=== PATIENT | female | born 1950 | race Caucasian/White ===

== ENCOUNTER 2020-01-19 01:16 | Day surgery (SDC) | payer OTHER, SELFPAY ==
[2020-01-13 13:33] VITALS: BMI 32.8
[2020-01-19 06:43] VITALS: BP 136/84; PULSE 83; RESP 16; TEMP 36.9; O2SAT 99; BMI 32.2
[2020-01-19] MEDS: LACTATED RINGERS 1,000 ML 150 ML IV CONT (06:54)
--- NOTE | 2020-01-19 07:15 | P.PNAN_ITS ---
Anes - Initial Pre Proc Eval Procedure: Operation Date: 01/19/20 07:30 Proposed Procedures p Screening Colonoscopy - Leeroy Norris MD Date/Time: 01/19/20 07:15 Surgeon: Leeroy Norris MD Pre Op Diagnosis: neoplasm screening Patient Data Age: 69 Gender: F Height: 5 ft 8 in Weight: 96.1 kg Last Vital Signs Temp 98.5 F 01/19/20 06:43 Pulse 83 01/19/20 06:43 Resp 16 01/19/20 06:43 BP 136/84 01/19/20 06:43 Pulse Ox 99 01/19/20 06:43 Allergies Allergy/AdvReac Type Severity Reaction Status Date / Time morphine Allergy Mild itching Verified 01/19/20 06:41 Penicillins Allergy Mild RASH Verified 01/19/20 06:41 Home Medications Medication Instructions Recorded Confirmed Type irbesartan 150 mg PO DAILY 01/13/20 01/19/20 History levothyroxine 125 mcg PO DAILY 01/13/20 01/19/20 History loratadine [Claritin] 10 mg PO DAILY 01/13/20 01/19/20 History Patient hx anesthesia problems: none Family hx anesthesia problems: none PMFSH Past Medical History Medical History (Updated 01/19/20 @ 07:15 by Mao Jackson MD) H/O malignant neoplasm of breast Hypertension Hypothyroid Social History Social History (System 01/03/20 @ 08:24 by Bailey Jacobson) Alcohol intake: current Gender identity (if verbalized by the patient): Female Anes - Eval Final PreProcedure Day of Procedure 01/19/20 07:15 Patient weight: obese Heart: regular rate and rhythm Lungs: clear to auscultation Airway: Mallampati scale class III Neurological: alert and oriented Last oral intake: >/= 8 hours ASA classification: III Emergent: no Anesthetic plan: proceed Anesthesia type and monitoring: general GIVS and standard monitoring Informed Consent: The patient's anesthetic plan and its attendant risks and benefits were discussed with the patient/family/POA. Questions were solicited an d answers provided to the satisfaction of the patient/family/POA.
--- NOTE | 2020-01-19 07:53 | WPDGICN ---
Assessment and Plan Assessment and plan (1) Encounter for screening for colorectal malignant neoplasm: Code(s): Z12.11 - Encounter for screening for malignant neoplasm of colon; Z12.12 - Encounter for screening for malignant neoplasm of rectum Status: Acute Assessment and Plan: Screening colonoscopy to be performed today. Further recommendations after endoscopy. (2) H/O malignant neoplasm of breast: Code(s): Z85.3 - Personal history of malignant neoplasm of breast Status: Acute GI Consult Note Consult date/time: 01/19/20 07:53 HPI: Jade Hopkins is a 69 year old female Seen in evaluation at the request of Dr. Luis Miguel Teran, Followed by a PA Maren Nuno. Patient presents for neoplasia screening colonoscopy. Her current weight appetite bowel movements are normal. She denies abdominal pain. She has no blood in her stools. Bowel habits are regular. Family history is noncontributory. there is no family history of colon or rectal disease.Her brother had esophageal cancer Review of Systems Review of Systems: All systems reviewed & are unremarkable except as noted in HPI and below PMFSH Past Medical History Medical History H/O malignant neoplasm of breast Hypertension Hypothyroid Social History Social History (System 01/03/20 @ 08:24 by Bailey Jacobson) Alcohol intake: current Gender identity (if verbalized by the patient): Female Meds Home Medications and Allergies Home Medications Medication Instructions Recorded Confirmed Type irbesartan 150 mg PO DAILY 01/13/20 01/19/20 History levothyroxine 125 mcg PO DAILY 01/13/20 01/19/20 History loratadine [Claritin] 10 mg PO DAILY 01/13/20 01/19/20 History Allergies Allergy/AdvReac Type Severity Reaction Status Date / Time morphine Allergy Mild itching Verified 01/19/20 06:41 Penicillins Allergy Mild RASH Verified 01/19/20 06:41 Vital Signs Vital Signs - 24 hr 01/19/20 06:43 Temperature 36.9 C Pulse Rate 83 Respiratory Rate 16 Blood Pressure 136/84 Pulse Oximetry 99 Exam Narrative: Exam Narrative: Physical exam reveals her to be alert. Vital signs stable. HEENT exam unremarkable. Lungs are clear to auscultation and percussion. Heart is without murmur or extra sounds. Abdominal exam bowel sounds are present soft nontender with no organomegaly. Digital external rectal exam normal.
[2020-01-19 07:54] VITALS: BP 78/41; PULSE 86; RESP 18; O2SAT 99
[2020-01-19 08:04] VITALS: BP 90/65; PULSE 91; RESP 19; O2SAT 98
[2020-01-19 08:14] VITALS: BP 98/57; PULSE 85; RESP 18; O2SAT 100
== END 2020-01-19 08:40 | disposition home or self-care (01) ==
PROVIDERS: PCP Physician Assistant; Visit Provider Internal Medicine Gastroenterology
PROC: 0DJD8ZZ Inspection of Lower Intestinal Tract, Via Natural or Artificial Opening Endoscopic (ICD-10-PCS; CPT 45378; principal; 2020-01-19 07:30)
DX: Z12.11 Encounter for screening for malignant neoplasm of colon (principal); D12.8 Benign neoplasm of rectum; K63.5 Polyp of colon; K57.30 Diverticulosis of large intestine without perforation or abscess without bleeding; K64.8 Other hemorrhoids; I10 Essential (primary) hypertension; E03.9 Hypothyroidism, unspecified; Z85.3 Personal history of malignant neoplasm of breast; E66.9 Obesity, unspecified; Z68.32 Body mass index [BMI] 32.0-32.9, adult
CPT/HCPCS: 45385; 88305; J2704; J7120

== ENCOUNTER → 2020-06-14 10:32 | Outpatient (CLI) | payer OTHER, SELFPAY ==
--- NOTE | ~2020-06-14 | MM_ITS ---
EXAMINATION: MM screening brenda RT w adelina HISTORY: Screening. Left breast cancer. TECHNIQUE: Craniocaudal and mediolateral oblique 3-D tomosynthesis images were obtained and synthetic 2-D images were generated. CAD analysis was submitted and interpreted. COMPARISON: Comparison to multiple prior studies sequentially, with oldest reviewed study dated 12/2013. BREAST PARENCHYMAL COMPOSITION: There are scattered areas of fibroglandular density. FINDINGS: There is no evidence of suspicious mass, calcification, or architectural distortion to sugg est malignancy in either breast. There has been no suspicious interval change. IMPRESSION: 1. No mammographic evidence of malignancy. 2. Recommend routine screening mammography in one year. BI-RADS Category 1: Negative Reviewed, dictated and finalized at location A.
== END ==
PROVIDERS: Visit Provider Obstetrics & Gynecology
DX: Z12.31 Encounter for screening mammogram for malignant neoplasm of breast (principal)
CPT/HCPCS: 77063; 77067

== ENCOUNTER → 2021-07-20 07:19 | Outpatient (CLI) | payer OTHER, SELFPAY ==
--- NOTE | ~2021-07-20 | MM_ITS ---
EXAMINATION: MM screening brenda RT w adelina HISTORY: Screening mammogram; status post left mastectomy in 2008 for breast malignancy. (Right reduc tion mammoplasty in 2009). TECHNIQUE: Craniocaudal and mediolateral oblique 3-D tomosynthesis images were obtained and synthetic 2-D images were generated. CAD analysis was submitted and interpreted. COMPARISON: 06/14/2020, 01/17/2018, 03/22/2016 right digital screening mammogram examinations BREAST PARENCHYMAL COMPOSITION: There are scattered areas of fibroglandular density. FINDINGS: There is no evidence of suspicious mass, calcification, or architectural distortion to sugg est malignancy in either breast. There has been no suspicious interval change. IMPRESSION: 1. No mammographic evidence of malignancy. 2. Recommend routine screening mammography in one year. BI-RADS Category 1: Negative Reviewed, dictated and finalized at location A.
== END ==
PROVIDERS: PCP Family Medicine; Visit Provider Obstetrics & Gynecology
DX: Z12.31 Encounter for screening mammogram for malignant neoplasm of breast (principal)
CPT/HCPCS: 77063; 77067

== ENCOUNTER → 2022-03-15 14:33 | Outpatient (CLI) | payer OTHER, SELFPAY ==
--- NOTE | ~2022-03-15 | XR_ITS ---
XR shoulder RT min 2V DATE: 03/15/2022 14:56 INDICATION: Right shoulder pain TECHNIQUE: 4 views COMPARISON: None FINDINGS: Diffuse osteopenia. There is degenerative change at the right acromioclavicular joint. No fracture, dislocation, periosteal reaction or bone destruction or abnormal right shoulder soft tis patsy calcification. Levoscoliosis of the upper thoracic spine and dextro scoliosis of the lower thoracic spine. IMPRESSION: Osteopenia Degenerative change at right acromion clavicular joint Thoracic scoliosis Reviewed, dictated and finalized at location A.
--- NOTE | ~2022-03-15 | XR_ITS ---
XR knee RT 2V DATE: 03/15/2022 14:56 INDICATION: Right knee pain TECHNIQUE: Standing AP and lateral views COMPARISON: 09/25/2017 right knee FINDINGS: There is mild periarticular spurring of the patella. There is enthesopathy of the superior pole of the patella at the quadriceps tendon insertion. Knee joint spaces are mildly narrowed, especially medially, compared to 09/25/2017. No fracture or dislocation or joint effusion. No radiopaque intra-articular loose body or chondrocalc inosis. No periosteal reaction or bone destruction. IMPRESSION: Mild osteoarthritis Reviewed, dictated and finalized at location A. IMPRESSION: Mild osteoarthritis
== END ==
PROVIDERS: PCP Physician Assistant; Visit Provider Physician Assistant
DX: M25.561 Pain in right knee (principal); M25.511 Pain in right shoulder; M85.89 Other specified disorders of bone density and structure, multiple sites; M41.84 Other forms of scoliosis, thoracic region; M17.11 Unilateral primary osteoarthritis, right knee
CPT/HCPCS: 73030; 73560

== ENCOUNTER → 2022-12-03 11:17 | Outpatient (CLI) | payer MEDICARE, SELFPAY ==
--- NOTE | ~2022-12-03 | MM_ITS ---
EXAMINATION: MM screening brenda RT w adelina HISTORY: Screening mammogram; status post left mastectomy for breast malignancy TECHNIQUE: Craniocaudal and mediolateral oblique 3-D tomosynthesis images were obtained and synthetic 2-D images were generated. CAD analysis was submitted and interpreted. COMPARISON: 07/20/2021, 06/14/2020, 01/17/2018 right screening mammogram examinations BREAST PARENCHYMAL COMPOSITION: There are scattered areas of fibroglandular density. FINDINGS: 3.6 mm circumscribed mass is suggested in the posterior lower outer right breast (craniocau jeanette Tomosynthesis image 25/81). Diagnostic right mammogram and right breast ultrasound examination ar e recommended. Otherwise there is no evidence of suspicious mass, calcification, or architectural distortion to sugg est malignancy in either breast. There has been no other significant interval change. IMPRESSION: 1. 0.6 mm suspected mass in the posterior lower outer right breast 2. Diagnostic right mammogram and right breast ultrasound examination are recommended BI-RADS Category 0: Incomplete: Needs additional imaging evaluation. Reviewed, dictated and finalized at location A. ER GAS TUNGSTEN ARC IMPRESSION: 1. 0.6 mm suspected mass in the posterior lower outer right breast 2. Diagnostic right mammogram and right breast ultrasound examination are recom mended BI-RADS Category 0: Incomplete: Needs additional imaging evaluation.
== END ==
PROVIDERS: PCP Physician Assistant; Visit Provider Obstetrics & Gynecology
DX: Z12.31 Encounter for screening mammogram for malignant neoplasm of breast (principal); R92.8 Other abnormal and inconclusive findings on diagnostic imaging of breast
CPT/HCPCS: 77063; 77067

== ENCOUNTER → 2022-12-23 08:19 | Outpatient (CLI) | payer MEDICARE, SELFPAY ==
--- NOTE | ~2022-12-23 | MMUS_ITS ---
EXAMINATION: MM diagnostic brenda RT w adelina, US breast RT limited HISTORY: 6 mm suspected mass in superior lower outer right breast on 11/29/2022 screening mammogram TECHNIQUE: Additional 3-D tomosynthesis images of the right breast were performed and synthetic 2-D i mages were generated. CAD analysis was submitted and interpreted. High resolution upper outer and low er-outer quadrant right breast ultrasound was performed. COMPARISON: 11/29/2022 bilateral screening mammogram FINDINGS: MAMMOGRAPHIC FINDINGS: No suspicious mass or architectural distortion is evident. No malignant calcification, skin thickenin g or retraction. ULTRASOUND: No suspicious mass or shadowing is detected in the upper outer or lower outer quadrants IMPRESSION: 1. No mammographic evidence of malignancy 2. Routine mammographic screening is recommended BI-RADS Category 1: Negative Reviewed, dictated and finalized at location A. FILLER IMPRESSION: 1. No mammographic evidence of malignancy 2. Routine mammographic screening is recommended BI-RADS Category 1: Negative
== END ==
PROVIDERS: PCP Physician Assistant; Visit Provider Obstetrics & Gynecology
DX: R92.8 Other abnormal and inconclusive findings on diagnostic imaging of breast (principal)
CPT/HCPCS: 76642; 77061; 77065; G0279

== ENCOUNTER 2023-07-08 21:42 | Emergency (ER) | payer MEDICARE, SELFPAY ==
--- NOTE | ~2023-07-08 | CT_ITS ---
Noncontrast CT scan of the lumbar spine CLINICAL HISTORY: Back pain, radiculopathy TECHNIQUE: Axial noncontrast imaging of the lumbar spine was performed. Sagittal and coronal reformat breanna images were constructed. Dose reduction technique was used on this scan by utilizing automated ex posure control and iterative reconstruction technique. The dose-length product (DLP) was 998.11 mGy-c m. FINDINGS: No fracture or subluxation seen in the lumbar spine. Vertebral bodies maintain normal heigh t and alignment. There is severe degenerative disc narrowing at L4-L5. Remaining disc spaces are rela tively well-preserved. At L1-L2, there is minimal disc bulge and minimal facet arthropathy. No central canal stenosis or def inite neural foraminal narrowing. At L2-L3, there is minimal disc bulge with moderate facet arthropathy. No central canal stenosis or d efinite neural foraminal narrowing. At L3-L4, there is disc bulge and facet arthropathy, resulting in moderate to severe central canal st enosis/thecal sac compression. Bilateral neural foramina are preserved. At L4-L5, disc bulge and facet arthropathy result in probable severe central canal stenosis/thecal sa c compression. There is mild bilateral neural foraminal narrowing. At L5-S1, there is disc bulge and facet arthropathy. There is probable moderate central canal stenosi s. There is severe right neural foraminal narrowing, and moderate left neural foraminal narrowing. Paravertebral soft tissues are unremarkable. Impression: Severe degenerative spondylosis at L3-L4, L4-L5, and L5-S1, as detailed above. Follow-up MR can be co nsidered for further evaluation as indicated. Reviewed, dictated and finalized at location M. Impression: Severe degenerative spondylosis at L3-L4, L4-L5, and L5-S1, as detailed above. Follow-up MR can be considered for further evaluation as indicated.
--- NOTE | ~2023-07-08 | XR_ITS ---
AP view of the pelvis and AP and lateral views of the left hip Clinical history: Pain Findings: No acute fracture or dislocation is seen. Osseous alignment is anatomic. Bilateral hip and SI joint spaces are preserved. Soft tissues are unremarkable. Impression: No significant abnormality is seen. Reviewed, dictated and finalized at [facility]. Impression: No significant abnormality is seen.
[2023-07-08 21:57] VITALS: BP 145/66; PULSE 76; RESP 17; TEMP 36.6; O2SAT 100
[2023-07-09 01:22] VITALS: BP 151/83; PULSE 76; RESP 15; TEMP 36.4; O2SAT 99
[2023-07-09 03:55] VITALS: BP 142/68; PULSE 62; RESP 14; TEMP 36.2; O2SAT 99
[2023-07-09] MEDS: CYCLOBENZAPRINE HCL 10 MG TABLET PO (04:42)
[2023-07-09] MEDS: HYDROmorphone HCL INJ (*CRX) 1 MG/ML SYR IM (04:42)
[2023-07-09] MEDS: KETOROLAC 30 MG/ML VIAL (*BKC) IM (04:42)
[2023-07-09 04:49] VITALS: BP 163/81; PULSE 71; RESP 17; O2SAT 98
[2023-07-09 06:37] VITALS: BP 142/79; PULSE 63; RESP 15; O2SAT 98
--- NOTE | 2023-07-09 07:07 | ED.GENADULT ---
HPI - General Adult General Chief complaint: Back Pain/Injury Stated complaint: left lower back pain radiating down leg. Time Seen by Provider: 07/09/23 04:17 History of Present Illness HPI narrative: Patient is 73-year-old female who presents emergency department with chief complaint of low back pain and left hip and thigh pain. Patient reports that she started having severe low back pain reports that she had pain radiating into the left leg describes a burning sensation patient denies bowel or bladder dysfunction denies foot drop. Patient reports no trauma does report she has remote history of breast cancer that she has been treated for. Patient reports no history of bony mets. Related Data Home Medications Medication Instructions Recorded Confirmed irbesartan 150 mg tablet 150 mg PO DAILY 01/13/20 01/19/20 loratadine 10 mg tablet (Claritin) 10 mg PO DAILY 01/13/20 01/19/20 Allergies Allergy/AdvReac Type Severity Reaction Status Date / Time morphine Allergy Mild itching Verified 07/09/23 04:06 Penicillins Allergy Mild RASH Verified 07/09/23 04:06 Review of Systems Review of Systems: A 10 system review of systems was completed on the patient and is negative except for what is stated in the HPI. Nursing and ancillary documentation was reviewed. [facility] Past Medical History Medical History Diabetes mellitus type 2, controlled, without complications H/O malignant neoplasm of breast Hypertension Hypothyroidism Vitamin D deficiency Surgical History Surgical History H/O breast reconstruction left History of surgical removal of pilonidal cyst 1971 Hx of mastectomy left 12/29/2008 Family History Family History Father COPD (chronic obstructive pulmonary disease) Mother Alcoholism Grandparent Heart disease Social History Social History Smoking status: Former smoker Tobacco type: cigarettes Second hand tobacco smoke exposure: No Alcohol intake: current Drinks per week: 1 Alcohol use details: once every two month Substance use: never Substance use type: does not use Lack of Transportation: No Lack of Food: Never True Current Housing: I Have Housing Concerned About Future Housing: No Difficulty Paying Gas/Electric Bills: No Difficulty Paying for Meds: No Currently Unemployed: YES Education: High School Diploma/GED Difficulty w/ Childcare or Family Care: No Living arrangements: with family Occupation/Education: retired Gender identity (if verbalized by the patient): Female Sexual Orientation (if Verbalized by the Patient): Straight or Heterosexual Spiritual care concerns: No Agree to blood products: Yes Exam Narrative: GENERAL: Well-appearing, well-nourished, and in no acute distress. HEAD: Normocephalic, atraumatic. EYES: PERRLA and EOMI. ENT: Nares clear, no rhinorrhea or epistaxis. Mucous membranes moist. NECK: Supple. CHEST: Clear to auscultation. No respiratory distress. HEART: Regular rate and rhythm. No murmur heard. Normal peripheral pulses. ABDOMEN: Soft, nontender, nondistended, normal active bowel sounds. EXTREMITIES: Normal range of motion. No edema. SKIN: Warm, dry, no rash. NEURO: No focal deficits. Alert and oriented x3. No saddle anesthesia, no foot drop PSYCH: Normal mood and affect. Course Vital Signs Vital signs: Vital Signs Temperature 36.6 C 07/08/23 21:57 Pulse Rate 76 07/08/23 21:57 Respiratory Rate 17 07/08/23 21:57 Blood Pressure 145/66 H 07/08/23 21:57 Pulse Oximetry 100 07/08/23 21:57 Oxygen Delivery Room Air 07/08/23 21:57 Temperature 36.2 C L 07/09/23 03:55 Pulse Rate 63 07/09/23 06:37 Respiratory
[2023-07-09 07:18] VITALS: BP 137/74; PULSE 66; RESP 15; O2SAT 100
== END 2023-07-09 07:21 | disposition home or self-care (01) ==
PROVIDERS: Emergency Provider Emergency Medicine; PCP Physician Assistant
DX: M54.42 Lumbago with sciatica, left side (principal); E11.9 Type 2 diabetes mellitus without complications; I10 Essential (primary) hypertension; E03.9 Hypothyroidism, unspecified; E55.9 Vitamin D deficiency, unspecified; Z85.3 Personal history of malignant neoplasm of breast; Z87.891 Personal history of nicotine dependence; M47.816 Spondylosis without myelopathy or radiculopathy, lumbar region; Z79.84 Long term (current) use of oral hypoglycemic drugs
CPT/HCPCS: 72131; 73502; 96372; 99284; A9270; J1100; J1170; J1885

== ENCOUNTER 2025-04-22 10:03 | Outpatient (CLI) | payer MEDICARE, SELFPAY ==
--- NOTE | ~2025-04-22 | MM_ITS ---
EXAMINATION: MM screening brenda RT w adelina HISTORY: Screening TECHNIQUE: Craniocaudal and mediolateral oblique 3-D tomosynthesis images were obtained and synthetic 2-D images were generated. CAD analysis was submitted and interpreted. COMPARISON: Comparison to multiple prior studies sequentially, with oldest reviewed study dated 03/22. BREAST PARENCHYMAL COMPOSITION: Not dense: There are scattered areas of fibroglandular density. FINDINGS: There is no evidence of suspicious mass, calcification, or architectural distortion to sugg est malignancy in the right breast. There has been no suspicious interval change. IMPRESSION: 1. No mammographic evidence of malignancy. 2. Recommend routine screening mammography in one year. BI-RADS Category 1: Negative Reviewed, dictated and finalized at location B.
== END 2025-04-22 10:04 | disposition home or self-care (01) ==
LOC: MICIMG 10:04
PROVIDERS: PCP Family Medicine; Visit Provider Family Medicine
DX: Z12.31 Encounter for screening mammogram for malignant neoplasm of breast (principal)
CPT/HCPCS: 77063; 77067

== ENCOUNTER 2025-05-02 00:17 | Day surgery (SDC) | payer MEDICARE, SELFPAY ==
[2025-04-13 14:40] VITALS: BMI 29.0
[2025-05-02 08:05] VITALS: BP 155/94; PULSE 79; RESP 16; TEMP 36.6; O2SAT 96; BMI 28.8
[2025-05-02 08:30] LABS: Glucose Point of Care 96 mg/dl (65-105)
[2025-05-02] MEDS: LACTATED RINGERS 1,000 ML 150 ML IV CONT (08:30)
--- NOTE | 2025-05-02 09:25 | PM.IMHP ---
H&P: HPI History of Present Illness Date/Time: 05/02/25 09:25 Chief Complaint: History of colon polyps Narrative: The patient has a history of colonic polyps, the last colonoscopy was 8 years ago. Review of Systems Review of Systems: All systems reviewed & are unremarkable except as noted in HPI and below PMFSH Past Medical History Medical History (Updated 01/05/25 @ 17:20 by Luis Miguel Teran MD) Essential (primary) hypertension Personal history of adenomatous and serrated colon polyps Diabetes mellitus type 2, controlled, without complications Vitamin D deficiency Hypothyroidism H/O malignant neoplasm of breast Surgical History Surgical History H/O breast reconstruction left Hx of mastectomy left 12/29/2008 History of surgical removal of pilonidal cyst 1971 Family History Family History Father COPD (chronic obstructive pulmonary disease) Mother Alcoholism Grandparent Heart disease Social History Social History Smoking packs per day: 0.5 Smoking cigarettes per day: 10.0 Years smoked: 30 Smoking pack-years: 15.00 Smoking status: Former smoker Tobacco type: cigarettes Second hand tobacco smoke exposure: No Alcohol intake: never Drinks per week: 1 Alcohol use details: once every two month Substance use: never Substance use type: does not use Do You Feel Safe in your Home?: Yes Lack of Transportation: No Lack of Food: Never True Current Housing: I Have Housing Concerned About Future Housing: No Difficulty Paying Gas/Electric Bills: No Difficulty Paying for Meds: No Currently Unemployed: YES Education: High School Diploma/GED Difficulty w/ Childcare or Family Care: No Living arrangements: with family Occupation/Education: retired Gender identity (if verbalized by the patient): Female Sexual Orientation (if Verbalized by the Patient): Straight or Heterosexual Spiritual care concerns: No Agree to blood products: Yes Meds Home Medications and Allergies Home Medications ?Medication ?Instructions ?Recorded ?Confirmed ?Type loratadine 10 mg tablet (Claritin) 10 mg PO DAILY 01/13/20 05/02/25 History calcium 600 mg (as 1 tablet PO DAILY #30 tabs 12/20/22 05/02/25 Rx carbonate)-vitamin D3 10 mcg (400 unit) tablet cholecalciferol (vitamin D3) 25 25 mcg PO BID #60 caps 12/20/22 05/02/25 Rx mcg (1,000 unit) capsule multivitamin 1 tablet PO DAILY #30 tabs 12/20/22 05/02/25 Rx empagliflozin 25 mg tablet 25 mg PO DAILY #10 tabs 04/22/24 05/02/25 Rx (Jardiance) levothyroxine 137 mcg capsule 137 mcg PO DAILY #90 caps 12/20/24 05/02/25 Rx metformin 1,000 mg tablet 1,000 mg PO DAILY #90 tabs 01/20/25 05/02/25 Rx irbesartan 150 mg tablet See Rx Instructions .Route 02/06/25 05/02/25 Rx .COMPLEX #90 tabs diclofenac sodium 75 mg See Rx Instructions .Route 04/21/25 05/02/25 Rx tablet,delayed release .COMPLEX #60 tabs Allergies Allergy/AdvReac Type Severity Reaction Status Date / Time morphine Allergy Mild itching Verified 05/02/25 08:15 Penicillins Allergy Mild RASH Verified 05/02/25 08:15 Vital Signs Vital Signs - 24 hr 05/02/25 08:05 Temperature 97.9 F Pulse Rate 79 Respiratory Rate 16 Blood Pressure 155/94 H Pulse Oximetry 96 Oxygen Delivery Room Air Exam Const: General: cooperative and healthy appearing Resp: Effort & Inspection: normal respiratory effort and able to speak in complete sentences Auscultation: clear to auscultation bilaterally Cardio: Rate: regular rate Rhythm: regular rhythm GI: Inspection: normal to inspection GI Palp: No No hepatosplenomegaly present Auscultation: normal bowel sounds Rectal Exam: deferred Skin: General skin exam: normal color Psych: Appearance: grossly normal Mental Status: mental status grossly normal Assessment and Plan Assessment and plan (1) Personal history of adenomatous and serrated colon polyps: Code(s): Z86.0101 - Personal history of adenomatous and serrated colon polyps Status: Acute Assessment and Plan: The patient is deemed a good candidate for the procedure. Consent signed. Will proceed.
[2025-05-02] MEDS: SIMETHICONE ORAL SUSPENSION 20 MG/0.3 ML 30 ML BOTTLE 0.6 ML IRRIGATION (09:43)
[2025-05-02 09:56] VITALS: BP 92/42; PULSE 76; RESP 20; O2SAT 98
[2025-05-02 10:06] VITALS: BP 102/55; PULSE 70; RESP 16; O2SAT 98
[2025-05-02 10:16] VITALS: BP 144/75; PULSE 68; RESP 12; O2SAT 98
== END 2025-05-02 10:31 | disposition home or self-care (01) ==
PROVIDERS: PCP Family Medicine; Referring Provider Family Medicine; Visit Provider Internal Medicine Gastroenterology
PROC: 0DJD8ZZ Inspection of Lower Intestinal Tract, Via Natural or Artificial Opening Endoscopic (ICD-10-PCS; CPT 45378; principal; 2025-05-02 09:30)
DX: Z12.11 Encounter for screening for malignant neoplasm of colon (principal); K57.30 Diverticulosis of large intestine without perforation or abscess without bleeding; K64.8 Other hemorrhoids; Z86.0100 Personal history of colon polyps, unspecified; Z87.891 Personal history of nicotine dependence; Z79.84 Long term (current) use of oral hypoglycemic drugs
CPT/HCPCS: G0105; 82948; J2003; J2704; J7120